=== PATIENT | male | born 1995 | race Caucasian/White ===

== ENCOUNTER 2019-09-25 17:09 | Emergency (ER) | payer OTHER, SELFPAY ==
[2019-09-25 17:11] VITALS: BP 149/115; PULSE 121; RESP 18; TEMP 36.7; O2SAT 99; BMI 19.0
[2019-09-25 17:14] VITALS: BP 105/81; PULSE 76; RESP 16; TEMP 36.6; O2SAT 98
--- NOTE | 2019-09-25 17:40 | EKG12_ITS ---
Test Reason : CP Blood Pressure : / mmHG Vent. Rate : 093 BPM Atrial Rate : 093 BPM P-R Int : 120 ms QRS Dur : 090 ms QT Int : 338 ms P-R-T Axes : 073 088 042 degrees QTc Int : 420 ms Normal sinus rhythm with sinus arrhythmia Normal ECG Confirmed by TREVON BEACH, MARC ([id number]), book or script editor FABIOLA PACHECO ([id number]) on 09/28/2019 10:35:01 AM Referred By: JOANNA/CHRIS Confirmed By:MARC LESTER MD
--- NOTE | 2019-09-25 17:41 | ED.VIS.GEN ---
History of Present Illness Chief Complaint: Chest Pain Informant: Patient Narrative: For the past 2 to 3 days patient had a pain left shoulder blade left anterior chest is worse with taking a deep breath. It is intermittent in nature. At times he gets tingling down his arm. States it is particularly worse this morning when he woke up. He thought perhaps it was something muscular but given his family history of spontaneous pneumothorax he figured he should get it evaluated. He does have a history of vaping. Past Medical History - Allergies and Home Meds Allergies/Adverse Reactions: Allergies No Known Allergies Allergy (Verified 09/25/19 17:15) Review of Systems General: Denies: Chills, Fever, Sweats Eyes: Denies: Visual changes - bilaterally, Diplopia ENT: Denies: Rhinorrhea, Sore throat Cardiovascular: Reports: Chest pain. Denies: Palpitations Respiratory: Denies: Dyspnea, Cough, Dyspnea on exertion Gastrointestinal: Denies: Abdominal pain, Nausea, Vomiting, Diarrhea, Melena, Hematochezia Genitourinary: Denies: Dysuria, Hematuria, Frequency Musculoskeletal: Reports: Back pain. Denies: Extremity Pain Skin: Denies: Rash, Wounds Neurological: Reports: Parasthesia. Denies: Headache, Weakness, Numbness Physical Exam Vital Signs/Narrative: Vital Signs Temp Pulse Resp BP Pulse Ox 09/25/19 17:11 98.0 F 121 H 18 149/115 H 99 Inital Vital Signs reviewed: Yes General: Well nourished, Well developed, No Acute Distress Head: Normocephalic, Atraumatic Eyes: Perrl, EOMI ENT: Moist mucous membranes, No rhinorrhea Neck: Supple, Nontender Cardiovascular: Regular rate, Regular rhythm, No murmurs Respiratory: No distress, CTA bilaterally, Chest nontender Abdomen: Soft, Nontender, Nondistended, Normal bowel sounds Back: Nontender, Normal Inspection Extremities: Nontender, No edema Skin: Normal color, No rash Neurological: Alert, Oriented x3, Cranial nerves II-XII grossly intact, Normal Strength, Normal Sensation Psychological: Normal affect, Normal Mood Diagnostic/Tx/Re-eval - EKG Initial EKG Interpretation: Sinus Rhythm - EKG is a sinus rhythm at a rate of [address] segments. - Medical Decision Making Chest x-ray shows no pneumothorax or effusion or infiltrate. His symptoms are intermittent. Therefore I do not think that this is pulmonary embolism. I do not think he has any evidence of ACS or dissection. I think this is most likely musculoskeletal if not improving follow-up with primary care return if worsening or concerns ED Disposition - Plan for ED Patient: Disposition: Home or Assisted Living Diagnosis: Chest wall pain Instructions: ED Chest Pain NonCardiac Referrals: Alonzo Arevalo MD [Primary Care Provider] - 1 Week if not improving
--- NOTE | 2019-09-25 17:48 | NURSING ---
NO OLD EKGS
--- NOTE | 2019-09-25 17:58 | RAD_ITS ---
STUDY: X-RAY CHEST REASON FOR EXAM: Male, 24 years old. Chest pain, history of vaping TECHNIQUE: PA and lateral views of the chest. COMPARISON: None. FINDINGS: EKG leads overlie the chest The lungs are clear and expanded. There is no demonstrated pleural abnormality. Normal size heart. Normal mediastinum and carlos. Normal visualized pulmonary arteries. Normal visualized aortic arch and descending thoracic aorta. Normal visualized thoracic spine. Normal visualized ribs, clavicles, and shoulders. There is no demonstrated abnormality of the visualized soft tissue structures of the upper abdomen. RAD/Chest PA and Lateral IMPRESSION: No acute pulmonary process Electronically Signed: Pablo Jasmine MD at 18:13 EDT , Service support ,
[2019-09-25 18:14] VITALS: BP 103/70; PULSE 70; RESP 16; TEMP 36.6; O2SAT 97
== END 2019-09-25 18:24 | disposition home or self-care (01) ==
PROVIDERS: Emergency Provider Emergency Medicine; PCP Family Medicine
DX: R07.89 Other chest pain (principal)
CPT/HCPCS: 71046; 93005; 99284; A4216

== ENCOUNTER 2021-05-21 15:20 | Outpatient (CLI) | payer OTHER, SELFPAY ==
--- NOTE | 2021-05-21 15:25 | RAD_ITS ---
EXAM: XR RIGHT ANKLE, 2 VIEWS CLINICAL INDICATION: R ANKLE PAIN, states twisted ankle last night, pain in dorsal aspect of foot as well as entirety of ankle TECHNIQUE: Frontal and lateral views of the right ankle. This report was created using [employer] report generation technology. COMPARISON: None. FINDINGS: BONES/JOINTS: Unremarkable. No acute fracture. No subluxation. Normal alignment. Preservation of the joint space. No sclerotic or destructive changes observed. SOFT TISSUES: Unremarkable. No soft tissue swelling or gas. No radiopaque foreign body. RAD/Ankle 2 Views IMPRESSION: Negative right ankle x-rays. Electronically Signed: Nathaniel Dickey MD at 15:55 EST ,
== END 2021-05-21 23:59 | disposition short-term general hospital (02) ==
LOC: RAD 15:24
PROVIDERS: PCP Family Medicine; Referring Provider Family Medicine; Visit Provider Family Medicine
DX: M25.571 Pain in right ankle and joints of right foot (principal)
CPT/HCPCS: 73600

== ENCOUNTER → 2025-03-31 | Outpatient (CLI) | payer OTHER, SELFPAY ==
--- NOTE | 2025-03-31 08:54 | US_ITS ---
PROCEDURE: ABDOMEN COMPLETE 03/31/2025 REASON FOR EXAM: RUQ PAIN/NAUSEA/ALCOHOL USE TECHNIQUE: Procedure Code: USABDC Modality: US Procedure: ABDOMEN COMPLETE COMPARISON: None. FINDINGS: LIVER ECHOGENICITY: Normal SIZE: Normal measuring 15.6 cm in length. CONTOUR: Smooth. MASS: None. PORTAL VEIN: Normal direction hepatopetal portal venous flow. GALLBLADDER SIZE: Normal. STONES: None. SLUDGE: None. WALL THICKNESS: Normal measuring 1.8 mm. PERICHOLECYSTIC FLUID: None. SONOGRAPHIC CARRILLO'S SIGN: Negative. BILE DUCTS: Normal with the CBD measuring 1.9 mm in diameter. PANCREAS: Unremarkable as visualized. The distal pancreas is obscured by overlying bowel gas. SPLEEN: Homogeneous spleen measuring 10.9cm in length. RIGHT KIDNEY: Normal size and echogenicity with a length of 11.0 cm. No hydronephrosis, nephrolithiasis, cyst or mass seen. LEFT KIDNEY: Normal size and echogenicity with a length of 11.2 cm. No hydronephrosis, nephrolithiasis, cyst or mass seen. AORTA: No aneurysm. Maximum diameter of 1.6 cm. IVC: Unremarkable. ASCITES/EFFUSIONS: None. OTHER: None. US/Abdomen Complete IMPRESSION: UNREMARKABLE ABDOMINAL ULTRASOUND. Reading Location: [id number]
--- OUTSIDE RECORDS SUMMARY | 2025-03-31 08:54 | XMS RPT_ITS | CCD ---
Author Organization [facility] Inform ion Partnership [facility] Care Team Providers Care Crusher Tender Name Role Phone Unavailable Primary Care Provider UnavailStephen Barrera MD Primary Care Provider ARTIE BARFIELD Attending Unavailable STEPHEN CORDERO Primary Care Unavailable Medications Current Medications Medication Drug Class(es) Dates Sig (Normalized) Sig (Original) finasteride 1 mg oral tablet (1 source) 5-alpha Reductase Inhibitor Start: 03-02-2025 take 1 tablet by mouth once daily finasteride (Propecia) 1 MG tablet Indications: Hair loss Take 1 tablet (1 mg) by mouth daily. Do not crush, chew, or split. 30 tablet 03/02/2025 Active Problems Active Problems Problem Classification Problem Date Documented Da te Episodic/Chronic Abdominal pain (4 sources) Right upper quadrant pain; Translations: [Right upper quadrant pain] Onset: 02-26-2025 02-26-2025 Episodic Administrative/social admission (10 sources) Patient encounter status; Translations: [Persons encountering health services in other specified circumstances] Onset: 02-26-2025 02-26-2025 Episodic Alcohol-related disorders (8 sources) Current drinker; Translations: [Alcohol use] Onset: 02-26-2025 02-26-2025 Chronic Disorders of lipid metabolism (8 sources) Mixed hyperlipidemia; Translations: [Mixed hyperlipidemia] Onset: 02-27-2025 02-27-2025 Chronic Malaise and fatigue (4 sources) Fatigue; Translations: [Other fatigue] Onset: 02-26-2025 02-26-2025 Episodic Nausea and vomiting (4 sources) Nausea; Translations: [Nausea] Onset: 02-26-2025 02-26-2025 Episodic Other nutritional; endocrine; and metabolic disorders (2 sources) Weight increased; Translations: [Abnormal weight gain] 02-26-2025 Episodic Other nutritional; endocrine; and metabolic disorders (2 sources) Abnormal weight gain; Translations: [Abnormal weight gain] Onset: 02-26-2025 Episodic Other screening for suspected conditions (not mental disorders or infectious disease) (6 sources) Encounter for screening for diabetes mellitus; Translations: [Encounter for screening for lipoid disorders] Onset: 02-26-2025 Episodic Other skin disorders (9 sources) Loss of hair; Translations: [Nonscarring hair loss, unspecified] Onset: 02-26-2025 02-26-2025 Episodic Other skin disorders (2 sources) Nonscarring hair loss, unspecified; Translations: [Nonscarring hair loss, unspecified] Onset: 02-26-2025 Episodic Residual codes; unclassified (2 sources) Influenza vaccination declined; Translations: [Immunization not carried out because of patient refusal] 02-26-2025 Episodic Residual codes; unclassified (2 sources) Immunization not carried out because of patient refusal; Translations: [Immunization not carried out because of patient refusal] Onset: 02-26-2025 Episodic Unclassified (1 source) Alcohol use, unspecified, uncomplicated; Translations: [Alcohol use, unspecified, uncomplicated] Onset: 02-26-2025 Past or Other Problems Problem Classification Problem Date Documented Date Episodic/Chronic Immunizations and screening for infectious disease (7 sources) At risk of sexually transmitted infection ; Translations: [Contact with and (suspected) exposure to infections with a predominantly sexual mode of transmission] Onset: 06-17-2016 Resolved: 02-26-2025 02-06-2022 Episodic Unclassified (1 source) Alcohol use, unspecified, uncomplicated; Translations: [Alcohol use, unspecified, uncomplicated] Onset: 02-26-2025 Results Test Name Value Interpretation Reference Range Facil ity 29on 03-02-2025 29 Addended by: ARTIE BARFIELD on: 03/02/2025 09:22 AM Modules accepted: [facility] 36on 03-02-2025 36 Called and reviewed medication options and potential side effects. Kulwant would still like to proceed with the medication and prescription sent for finasteride 1 mg by mouth daily. Will send a [employer] message with an update in 3 weeks or so with how he is doing on the medication and let me know if he would like to continue taking it. Discussed possible referral to dermatology if symptoms persist or worsen for further evaluation/workup. Normal [facility] 36on 02-28-2025 36 Attempted to call Kulwant to review options with no answer. Will attempt to reach out to Kulwant again on Wednesday this week. Normal [facility] Office Visiton 02-26-2025 Follow-up visit [id number] Kulwant Steen 1995 M Date Provider Department Center 02/26/2025 [id number] BARFIELD [facility] Family History Problem Relation Age of Onset Skin cancer Maternal Grandfather Family Status - Relation Status Age at Mother Alive Father Alive Maternal Grandfather Level of Service:46150 [place] INITIAL PREVENTIVE MEDICINE NEW PT AGE 18-39YRS Reason for Visit and Comments: Establish Care [42] Alopecia [5498122643] Abdominal Pain [038926] - Pain that comes up to his shoulder then bad gas feeling after Fatigue [46] Blood Work [961513] Health Maintenance [872] - HIV Screening- declines Varicella Vaccines(2 of 2 - 2-dose childhood series)- decline IPV Vaccines- declines Depression Screening- declines Hepatitis C Screening- declines DTaP/Tdap/Td Vaccines- decline Hepatitis B Vaccines- decline Influenza Vaccine(1)- declines COVID-19 Vaccine(3)-declines Other [0] - Face red, hot, sweating [facility] Progress Noteon 02-26-2025 Progress Note [facility] [address] [facility] [id number] Kulwant Steen is a 30 y.o. male who presents for Establish Care, Alopecia, Abdominal Pain (Pain that comes up to his shoulder then bad gas feeling after ), Fatigue, Blood Work, Health Maintenance (HIV Screening- declines/Varicella Vaccines(2 of 2 - 2-dose childhood series)- decline/IPV Vaccines- declines/Depression Screening- declines/Hepatitis C Screening- declines/DTaP/Tdap/Td Vaccines- decline/Hepatitis B Vaccines- decline/Influenza Vaccine(1)- declines/COVID-19 Vaccine(3)-declines/) , and Other (Face red, hot, sweating ) Assessment/Plan 1. Well adult exam (Z00.00) Comprehensive physical examination performed. Extensive blood work ordered including comprehensive metabolic panel for diabetes screening, liver enzymes, kidney function, and electrolytes; complete blood count to assess for infection, anemia, and platelet abnormalities; lipid panel for cholesterol screening; full thyroid panel including TSH, free T3, and free T4; amylase and lipase to evaluate pancreas function; and testosterone level. Follow-up in one year for physical examination, with additional follow-up pending blood work results. 2. Encounter to establish care (Z76.89) 3. Hair loss (L65.9) - chronic, worsening Full thyroid panel ordered to evaluate potential thyroid contribution to hair loss. 4. Other fatigue (R53.83) - chronic, stable Comprehensive blood work ordered including blood glucose, complete blood count, and metabolic panel to evaluate potential contributing factors. 5. Weight gain (R63.5) - chronic, worsening 30-pound weight gain over past year from 140 to 168 pounds without dietary changes. Thyroid panel ordered to assess for thyroid contribution. Counseled on empty calories from alcohol consumption as potential contributing factor. 6. Right upper quadrant abdominal pain (R10.11) - chronic, worsening Abdominal ultrasound ordered to evaluate for gallstones and assess liver size. Blood work ordered including liver enzymes, amylase, and lipase to evaluate liver, gallbladder, and pancreas. Patient advised to avoid heavy meals 4-6 hours prior to ultrasound. Patient prefers the [facility] location for the ultrasound; the order will be faxed there and the scheduling number will be provided at checkout. 7. Nausea (R11.0) - episodic Occurs randomly, sometimes with abdominal pain and sometimes independently. Morning dry heaving episodes noted. 8. Alcohol use (F10.90) - chronic, stable Regular alcohol consumption since age 22, currently drinking less than six beers on weekends and trying to limit to under four beers if drinking during weekdays. Previously drank more and has been slowly reducing intake. No withdrawal symptoms on non-drinking days. Liver enzymes ordered. Counseled on long-term risks including diabetes, elevated triglycerides, cholesterol abnormalities, and liver disease. Encouraged to continue gradual reduction in alcohol consumption. 9. Diabetes mellitus screening (Z13.1) Blood glucose included in comprehensive metabolic panel. Patient fasting since 9pm last night. 10. Screening for lipoid disorders (Z13.220) Lipid panel ordered. 11. Screening for deficiency anemia (Z13.0) Complete blood count ordered. 12. Influenza vaccine refused (Z28.21) Flu vaccine declined today. Kulwant was seen today for establish care, alopecia, abdominal pain, fatigue, blood work, health maintenance and other. Diagnoses and all orders for this visit: Well adult exam (Primary) Encounter to establish care Hair loss - CBC; Future - Comprehensive metabolic panel; Future - TSH; Future - T3, free; Future - T4, free; Future - Testosterone; Future - CBC - Comprehensive metabolic panel - TSH - T3, free - T4, free - Testosterone Other fatigue - CBC; Future - Comprehensive metabolic panel; Future - TSH; Future - T3, free; Future - T4, free; Future - Testosterone; Future - CBC - Comprehensive metabolic panel - TSH - T3, free - T4, free - Testosterone Weight gain - CBC; Future - Comprehensive metabolic panel; Future - TSH; Future - T3, free; Future - T4, free; Future - Testosterone; Future - CBC - Comprehensive metabolic panel - TSH - T3, free - T4, free - Testosterone Right upper quadrant abdominal pain - CBC; Future - Comprehensive metabolic panel; Future - US abdomen complete; Future - Amylase; Future - Lipase; Future - CBC - Comprehensive metabolic panel - Amylase - Lipase Nausea - CBC; Future - Comprehensive metabolic panel; Future - US abdomen complete; Future - Amylase; Future - Lipase; Future - CBC - Comprehensive metabolic panel - Amylase - Lipase Alcohol use - CBC; Future - Comprehensive metabolic panel; Future - US abdomen complete; Future - CBC - Comprehensive metabolic panel (more content not included)... [facility] 06-13-2024 36 Stephen Cordero MD37 minutes ago (3:11 PM) Cannot currently do that, we are needing more help in the office then we will start taking new patients. Left a message to return call. [facility] 36 Cannot currently do that, we are needing more help in the office then we will start taking new patients. [facility] 06-07-2024 36 Name of Caller: Kulwant Contact Reason for Appointment: Patient asking if Dr. Cordero would take him on as a patient again. Not showing when patient was last seen. Did not want to schedule a new to provider not knowing if it has been more than 3 years. Please advise. Office Name: [facility] Medication Refills need, if any: n/a Medication Name: n/a Normal [facility] Ankle 2 Viewson 05-21-2021 Ankle 2 Views [facility] [address] [place] [address] Ankle 2 Views MR#: [id number] Acct: [id number] Name: KULWANT STEEN Rep #: [id number] : 1995 M 26 From: Nathaniel Garcia PCP: Dr. Stephen Cordero MD Status: REG CLI Study: Ankle 2 Views Date of Exam: 05/21/21 Exam# [id number] Ordering Dr: Stephen Cordero MD EXAM: XR RIGHT ANKLE, 2 VIEWS CLINICAL INDICATION: R ANKLE PAIN, states twisted ankle last night, pain in dorsal aspect of foot as well as entirety of ankle TECHNIQUE: Frontal and lateral views of the right ankle. This report was created using [employer] report generation technology. COMPARISON: None. FINDINGS: BONES/JOINTS: Unremarkable. No acute fracture. No subluxation. Normal alignment. Preservation of the joint space. No sclerotic or destructive changes observed. SOFT TISSUES: Unremarkable. No soft tissue swelling or gas. No radiopaque foreign body. RAD/Ankle 2 Views IMPRESSION: Negative right ankle x-rays. Electronically Signed: Nathaniel Dickey MD at 15:55 EST Reading Location ID and State: [facility] / [place] , Service support , CC: Dr. Stephen Cordero MD Event Marketing Assistant: Signed Normal [facility] Vital Signs Date Time Vital Sign Value Performing Clinician Faci lity 02-26-2025 15:06-0500 Body height 182.9 cm Artie Thacker SENIOR INFORMATION SECURITY ARCHITECT Work Phone: [facility] 02-26-2025 15:06-0500 Body mass index (BMI) [Ratio] 22.81 kg/m2 Artie Moise CNP Work Phone: [facility] 02-26-2025 15:06-0500 Body weight 76.3 kg Artie Thacker SENIOR INFORMATION SECURITY ARCHITECT Work Phone: [facility] 02-26-2025 15:06-0500 Diastolic blood pressure 86 mm[Hg] Artie Barfield DOG WALKER - METER SETTER Work Phone: [email or web address] 02-26-2025 15:06-0500 Heart rate 93 /min Artie Barfield DOG WALKER - C SENIOR INFORMATION SECURITY ARCHITECT Work Phone: [email or web address] 02-26-2025 15:06-0500 SaO2% (BldA) [Mass fraction] 98 % Artie Barfield DOG WALKER - METER SETTER Work Phone: [email or web address] 02-26-2025 15:06-0500 Systolic blood pressure 118 mm[Hg] Artie Barfield DOG WALKER - METER SETTER Work Phone: [email or web address] Encounters Encounter Date Encounter Type Care Provider Facility Start: 02-27-2025 End: 02-27-2025 Follow-up encounter Artie Barfield DOG WALKER - METER SETTER Work Phone: [facility] Comment on above: CBC, Comprehensive m etabolic panel, Lipid panel, Additional followed-up results: 6 Start: 02-26-2025 End: 02-26-2025 Initial preventive medicine new pt age 18-39yrs Artie Barfield DOG WALKER - METER SETTER Work Phone: [facility] Comment on above: Well adult exam (Kami mirian Dx); Encounter to establish care; Hair loss; Other fatigue; Weight gain; Right upper quadrant abdominal pain; Nausea; Alcohol use; Diabetes mellitus screening; Screening for lipoid disorders; Screening for deficiency anemia; Influenza vaccine refused Start: 02-26-2025 End: 02-26-2025 Patient encounter status Artie Barfield DOG WALKER - METER SETTER [facility] Start: 02-26-2025 End: 02-26-2025 ambulatory ARTIE CAROLYNE [facility] Start: 02-26-2025 End: 02-26-2025 Encounter for general adult medical examination without abnormal findings ARTIE CAROLYNE [facility] Start: 06-07-2024 End: 06-30-2024 Telephone encounter Stephen Cordero MD Work Phone: [facility] Comment on above: Appointment Procedures Date Procedure Procedure Detail Performing Clinician Start: 02-26-2025 Adult depression screening assessment Artie Barfield DOG WALKER - METER SETTER Work Phone: Plan of Treatment Date Care Activity Detail Author Start: 02-21-2071 RSV Immunization for Adults (1 - 1-dose 75+ series) RSV Immunization for Adults (1 - 1-dose 75+ series) [facility] Start: 02-21-2046 Zoster Vaccines (1 of 2) Zoster Vacc delano (1 of 2) [facility] Start: 03-04-2026 End: 03-04-2026 Patient encounter procedure 03/04/2026 3:20 PM EST Office Visit [facility] [address] [place] [address] Artie Barfield, DOG WALKER - METER SETTER [address] [place] [address] [facility] Start: 02-26-2026 COVID-19 Vaccine ( season) COVID-19 Vaccine ( season) [facility] Comment on above: Postponed from 12/25 (Patient Refused) Start: 02-26-2026 Depression Screening Depression Scre ening [facility] Start: 02-26-2026 DTaP/Tdap/Td Vaccine s (3 - Tdap) DTaP/Tdap/Td Vaccines (3 - Tdap) [facility] Comment on above: Postponed from 02/21 (Patient Refused) Start: 02-26-2026 Hepatitis B Vaccines (1 of 3 - 19+ 3-dose series) Hepatitis B Vaccines (1 of 3 - 19+ 3-dose series) [facility] Comment on above: Postponed from 02/21 (Patient Refused) Start: 02-26-2026 Hepatitis C screening Hepatitis C Sc reening [facility] Comment on above: Postponed from 02/21 (Patient Refused) Start: 02-26-2026 HIV screening HIV Screening [facility] Comment on above: Postponed from 02/21 (Patient Refused) Start: 10-23-2025 Influenza vaccination Influenza Vacc ine (#1) [facility] Comment on above: Postponed from 12/25 (Patient Refused) Start: 08-27-2025 End: 02-27-2026 Lipid 1995 panel - Serum or Plasma Lipid panel Lab Routine Mixed hyperlipidemia Expected: 08/27/2025 (Approximate), Expires: 02/27/2026 [facility] [employer] Work Phone: Comment on above: Expected: 08/27/2025 (Approximate), Expires: 02/27/2026 Start: 08-22-2025 End: 08-22-2025 Clinical Support 08/22/2025 8:00 AM EDT Clinical Support [address] [address] [facility] Start: 02-27-2025 End: 02-27-2026 Comprehensive metabolic 1997 panel - Serum or Plasma Comprehensive metabolic panel Lab Routine Mixed hyperlipidemia Expected: 02/27/2025 (Approximate), Expires: 02/27/2026 [facility] Comment on above: Expected: 02/27/2025 (Approximate), Expires: 02/27/2026 Start: 02-26-2025 End: 02-26-2026 Amylase [Enzymatic activity/volume] in Serum or Plasma Amylase Lab Routine Right upper quadrant abdominal pain Nausea Expected: 02/26/2025 (Approximate), Expires: 02/26/2026 [facility] Comment on above: Expected: 02/26/2025 (Approximate), Expires: 02/26/2026 Start: 02-26-2025 End: 02-26-2026 CBC panel - Blood by Automated count CBC Lab Routine Hair loss Other fatigue Weight gain Right upper quadrant abdominal pain Nausea Alcohol use Screening for deficiency anemia Expected: 02/26/2025 (Approximate), Expires: 02/26/2026 [facility] Work Phone: Comment on above: Expected: 02/26/2025 (Approximate), Expires: 02/26/2026 Start: 02-26-2025 End: 02-26-2026 Comprehensive metabolic 1998 panel - Serum or Plasma Comprehensive metabolic panel Lab Routine Hair loss Other fatigue Weight gain Right upper quadrant abdominal pain Nausea Alcohol use Diabetes mellitus screening Expected: 02/26/2025 (Approximate), Expires: 02/26/2026 [email or web address] Comment on above: Expected: 02/26/2025 (Approximate), Expires: 02/26/2026 Start: 02-26-2025 End: 02-26-2026 Lipase [Enzymatic activity/volume] in Serum or Plasma Lipase Lab Routine Right upper quadrant abdominal pain Nausea Expected: 02/26/2025 (Approximate), Expires: 02/26/2026 [email or web address] Comment on above: Expected: 02/26/2025 (Approximate), Expires: 02/26/2026 Start: 02-26-2025 End: 02-26-2026 Lipid 1995 panel - Serum or Plasma Lipid panel Lab Routine Screening for lipoid disorders Expected: 02/26/2025 (Approximate), Expires: 02/26/2026 [email or web address] Comment on above: Expected: 02/26/2025 (Approximate), Expires: 02/26/2026 Start: 02-26-2025 End: 02-26-2026 Testosterone [Mass/volume] in Serum or Plasma Testosterone Lab Routine Hair loss Other fatigue Weight gain Expected: 02/26/2025 (Approximate), Expires: 02/26/2026 [email or web address] Comment on above: Expected: 02/26/2025 (Approximate), Expires: 02/26/2026 Start: 02-26-2025 End: 02-26-2026 Thyrotropin [Units/volume] in Serum or Plasma TSH Lab Routine Hair loss Other fatigue Weight gain Expected: 02/26/2025 (Approximate), Expires: 02/26/2026 [email or web address] Comment on above: Expected: 02/26/2025 (Approximate), Expires: 02/26/2026 Start: 02-26-2025 End: 02-26-2026 Thyroxine (T4) free [Mass/volume] in Serum or Plasma T4, free Lab Routine Hair loss Other fatigue Weight gain Expected: 02/26/2025 (Approximate), Expires: 02/26/2026 [email or web address] Comment on above: Expected: 02/26/2025 (Approximate), Expires: 02/26/2026 Start: 02-26-2025 End: 02-26-2026 Triiodothyronine (T3) Free [Mass/volume] in Serum or Plasma T3, free Lab Routine Hair loss Other fatigue Weight gain Expected: 02/26/2025 (Approximate), Expires: 02/26/2026 [email or web address] Comment on above: Expected: 02/26/2025 (Approximate), Expires: 02/26/2026 Start: 02-26-2025 End: 02-26-2026 US Abdomen US abdomen complete Imaging Routine Right upper quadrant abdominal pain Nausea Alcohol use Expected: 02/26/2025, Expires: 02/26/2026 [email or web address] Comment on above: Expected: 02/26/2025 , Expires: 02/26/2026 Immunizations Immunization Date Immunization Notes Care Provider Rajat reyes 02-11-2018 influenza, injectabl e, quadrivalent, contains preservative Stephen Cordero MD Work Phone: [email or web address] Work Phone: 02-11-2018 influenza virus vaccine, unspecified formulation Artie Barfield DOG WALKER - METER SETTER Work Phone: [facility] 02-15-2014 influenza, seasonal, injectable Artie Barfield DOG WALKER - METER SETTER Work Phone: [facility] 10-14-2001 diphtheria, tetanus toxoids and acellular pertussis vaccine, unspecified formulation Artie Barfield DOG WALKER - METER SETTER Work Phone: [facility] 10-14-2001 poliovirus vaccine, inactivated Artie Barfield DOG WALKER - METER SETTER Work Phone: [facility] 12-07-2000 measles, mumps and rubella virus vaccine Artie Barfield DOG WALKER - METER SETTER Work Phone: [facility] 03-07-1998 diphtheria, tetanus toxoids and acellular pertussis vaccine, unspecified formulation Artie Barfield DOG WALKER - METER SETTER Work Phone: [facility] 06-21-1997 measles, mumps and rubella virus vaccine Artie Barfield DOG WALKER - METER SETTER Work Phone: [facility] 06-21-1997 varicella virus vaccine Dewayne Barfield DOG WALKER - METER SETTER Work Phone: [facility] Payers Date Payer Category Payer Commercial Managed C are - HMO [employer] [id number] 2024 Unknown [id number] Social History Date Type Detail Facility Start: 02-26-2025 Tobacco smoking status GAIS Ex-smoke r [facility] End: 04-26-2020 History of tobacco use Current smoker [facility] Start: 02-11-2018 End: 02-26-2025 Alcoholic beverage intake Current drinker of alcohol (finding) [facility] Start: 1995 Sex assigned at Not on file [facility] Start: 11-24-2021 Sex Male (finding) [facility] Start: 02-26-2025 Gender identity Not on file [facility] End: 04-26-2020 History of tobacco use Cigarette Smoker [facility] Start: 02-26-2025 Tobacco use and exposure Smokeless t obacco non-user [facility] Start: 02-26-2025 Alcoholic beverage intake [facility] Start: 02-26-2025 Alcohol Comment social- patien t states drinks more then he should trys to no drink more then 6 a night [facility] Functional Status Date Assessment Result Facility 02-26-2025 Patient Health Questionnaire 2 item (PHQ- 2) [Reported] [facility] 02-26-2025 PHQ-9 quick depression assessment panel [ Reported.PHQ] [facility] Clinical Notes 06-07-2024 to 03-02-2025 Addendum Note - ARSH García CNP - 03/02/2025 9:22 AM ESTAddendum Note - ARSH García CNP - 03/02/2025 9:22 AM ARSH Antoine CNP - 02/26/2025 3:00 PM EST Note Date & Type Note [facility] 03-02-2025 Note Addended by: ARTIE BARFIELD on: 03/02/2025 09:22 AM Modules accepted: Orders [facility] 03-02-2025 Miscellaneous Notes Addended by: ARTIE BARFIELD on: 03/02/2025 09:22 AM Modules accepted: Orders Called and reviewed medication options and potential side effects. uKlwant would still like to proceed with the medication and prescription sent for finasteride 1 mg by mouth daily. Will send a [employer] message with an update in 3 weeks or so with how he is doing on the medication and let me know if he would like to continue taking it. Discussed possible referral to dermatology if symptoms persist or worsen for further evaluation/workup. Attempted to call Kulwant to review options with no answer. Will attempt to reach out to Kulwant again on Wednesday this week. documented in this encounter [facility] 03-02-2025 Telephone encounter Note Form atting of this note might be different from the original. Called and reviewed medication options and potential side effects. Kulwant would still like to proceed with the medication and prescription sent for finasteride 1 mg by mouth daily. Will send a MyChart message with an update in 3 weeks or so with how he is doing on the medication and let me know if he would like to continue taking it. Discussed possible referral to dermatology if symptoms persist or worsen for further evaluation/workup. [facility] 02-28-2025 Telephone encounter Note Form atting of this note might be different from the original. Attempted to call Kulwant to review options with no answer. Will attempt to reach out to Kulwant again on Wednesday this week. [facility] 02-28-2025 Miscellaneous Notes Formattin g of this note might be different from the original. Attempted to call Kulwant to review options with no answer. Will attempt to reach out to Kulwant again on Wednesday this week. documented in this encounter [facility] 02-26-2025 History of Presen t illness Narrative Images from the original note were not included. [address] [id number] Kulwant Steen is a 30 y.o. male who presents for [facility], Alopecia, Abdominal Pain (Pain that comes up to his shoulder then bad gas feeling after ), Fatigue, Blood Work, Health Maintenance (HIV Screening- declines/Varicella Vaccines(2 of 2 - 2-dose childhood series)- decline/IPV Vaccines- declines/Depression Screening- declines/Hepatitis C Screening- declines/DTaP/Tdap/Td Vaccines- decline/Hepatitis B Vaccines- decline/Influenza Vaccine(1)- declines/COVID-19 Vaccine(3)-declines/), and Other (Face red, hot, sweating ) Assessment/Plan 1. Well adult exam (Z00.00) Comprehensive physical examination performed. Extensive blood work ordered including comprehensive metabolic panel for diabetes screening, liver enzymes, kidney function, and electrolytes; complete blood count to assess for infection, anemia, and platelet abnormalities; lipid panel for cholesterol screening; full thyroid panel including TSH, free T3, and free T4; amylase and lipase to evaluate pancreas function; and testosterone level. Follow-up in one year for physical examination, with additional follow-up pending blood work results. 2. Encounter to [facility] (Z76.89) 3. Hair loss (L65.9) - chronic, worsening Full thyroid panel ordered to evaluate potential thyroid contribution to hair loss. 4. Other fatigue (R53.83) - chronic, stable Comprehensive blood work ordered including blood glucose, complete blood count, and metabolic panel to evaluate potential contributing factors. 5. Weight gain (R63.5) - chronic, worsening 30-pound weight gain over past year from 140 to 168 pounds without dietary changes. Thyroid panel ordered to assess for thyroid contribution. Counseled on empty calories from alcohol consumption as potential contributing factor. 6. Right upper quadrant abdominal pain (R10.11) - chronic, worsening Abdominal ultrasound ordered to evaluate for gallstones and assess liver size. Blood work ordered including liver enzymes, amylase, and lipase to evaluate liver, gallbladder, and pancreas. Patient advised to avoid heavy meals 4-6 hours prior to ultrasound. Patient prefers the [place] location for the ultrasound; the order will be faxed there and the scheduling number will be provided at checkout. 7. Nausea (R11.0) - episodic Occurs randomly, sometimes with abdominal pain and sometimes independently. Morning dry heaving episodes noted. 8. Alcohol use (F10.90) - chronic, stable Regular alcohol consumption since age 22, currently drinking less than six beers on weekends and trying to limit to under four beers if drinking during weekdays. Previously drank more and has been slowly reducing intake. No withdrawal symptoms on non-drinking days. Liver enzymes ordered. Counseled on long-term risks including diabetes, elevated triglycerides, cholesterol abnormalities, and liver disease. Encouraged to continue gradual reduction in alcohol consumption. 9. Diabetes mellitus screening (Z13.1) Blood glucose included in comprehensive metabolic panel. Patient fasting since 9pm last night. 10. Screening for lipoid disorders (Z13.220) Lipid panel ordered. 11. Screening for deficiency anemia (Z13.0) Complete blood count ordered. 12. Influenza vaccine refused (Z28.21) Flu vaccine declined today. Kulwant was seen today for establish care, alopecia, abdominal pain, fatigue, blood work, health maintenance and other. Diagnoses and all orders for this visit: Well adult exam (Primary) Encounter to establish care Hair loss - CBC; Future - Comprehensive metabolic panel; Future - TSH; Future - T3, free; Future - T4, free; Future - Testosterone; Future - CBC - Comprehensive metabolic panel - TSH - T3, free - T4, free - Testosterone Other fatigue - CBC; Future - Comprehensive metabolic panel; Future - TSH; Future - T3, free; Future - T4, free; Future - Testosterone; Future - CBC - Comprehensive metabolic panel - TSH - T3, free - T4, free - Testosterone Weight gain - CBC; Future - Comprehensive metabolic panel; Future - TSH; Future - T3, free; Future - T4, free; Future - Testosterone; Future - CBC - Comprehensive metabolic panel - TSH - T3, free - T4, free - Testosterone Right upper quadrant abdominal pain - CBC; Future - Comprehensive metabolic panel; Future - US abdomen complete; Future - Amylase; Future - Lipase; Future - CBC - Comprehensive metabolic panel - Amylase - Lipase Nausea - CBC; Future - Comprehensive metabolic panel; Future - US abdomen complete; Future - Amylase; Future - Lipase; Future - CBC - Comprehensive metabolic panel - Amylase - Lipase Alcohol use - CBC; Future - Comprehensive metabolic panel; Future - US abdomen complete; Future - CBC - Comprehensive metabolic panel Diabetes mellitus screening - Comprehensive metabolic panel; Future - Comprehensive metabolic panel Screening for lipoid disorders - Lipid panel; Future - Lipid panel Screening for deficiency anemia - CBC; Future - CBC Influenza vaccine refused Follow up in about 1 year (around 02/26/2026) for physical and fasting blood work and sooner if needed pending lab results. Subjective History of Present Illness Kulwant Steen, a 30-year-old male, [facility] with this office and for his annual physical. He previously received care here during childhood and has not been seeing any other primary care doctors in the interim. He reports noticing hair loss that began in his early 20s, around age 23-24, but has progressively worsened. He wakes up with clumps of hair on his pillow, notes his hairline is receding especially on one side, and has hair come out when running his fingers through it. He has been experiencing right upper quadrant abdominal pain for approximately one year that has been progressively worsening. The pain is located in the right upper quadrant and he describes it as feeling like a knot. Yesterday he had a particularly severe episode. He feels bloated and gets really bad gas afterwards. The pain does not always occur with the gas. Sometimes he experiences nausea randomly without stomach pain, and other times the nausea occurs together with the abdominal pain. All day yesterday the pain persisted, and this morning it still felt a little uncomfortable but has since resolved. Right before the pain happens, he gets really bad gas, and while in pain feels filled with gas that will not pass. He has had some morning dry heaving episodes right when he wakes up, occurring randomly regardless of whether he drank alcohol the night before. Regarding alcohol use, he tries to drink less than six beers on the weekends and tries not to drink during the week, though he is not perfect about it. If he does drink during the week, he tries to keep it under four beers to avoid feeling bad the next day. He has been drinking regularly since age 22. He denies any alcohol withdrawal symptoms on days he does not drink and reports he can go four to six days without drinking on backpacking trips without issue. He reports his face gets red randomly and he feels really hot at times. He has experienced significant weight gain over the past year, going from approximately 140 pounds to 168 pounds, despite no change in his diet. He reports low energy and fatigue, getting fatigued really easily and not feeling 100% all the time. After exertion, he feels sluggish and done for the rest of the day. He denies yellowing of skin or eyes, unexplained fevers or chills, chest pain, shortness of breath, irregular heartbeat, swelling in feet or ankles, blood in urine or stool, increased thirst, or increased urination. He reports heat intolerance. He denies feeling depressed or anxious. He has regular bowel movements. He works in an office setting. Socially, he sits at home, plays video games, chats with friends, and drinks beer. Health Maintenance: Vaccinated for COVID-19 x 2 with most recent dose on 09/09/2020- declines additional doses. Declines screening for hepatitis C and HIV. Declines a flu vaccination. Declines a second varicella vaccine-first dose recorded on 06/21/1997. Declines additional doses of IPV-only 1 dose recorded on 10/14/2001. Declines to be vaccinated for hepatitis B. Declines a Tdap vaccination. I obtained verbal consent from the patient and/or patient's guardian to use ambient listening technology during this encounter before the ambient technology was engaged. Review of Systems Constitutional: Positive for fatigue and unexpected weight change. Negative for chills and fever. HENT: Negative for hearing loss and trouble swallowing. Eyes: Negative for pain and visual disturbance. Respiratory: Negative for cough, chest tightness, shortness of breath and wheezing. Cardiovascular: Negative for chest pain, palpitations and leg swelling. Gastrointestinal: Positive for abdominal distention, abdominal pain (RUQ) and nausea. Negative for blood in stool, constipation and diarrhea. Endocrine: Positive for heat intolerance. Negative for cold intolerance, polydipsia, polyphagia and polyuria. Genitourinary: Negative for dysuria and hematuria. Musculoskeletal: Negative for arthralgias and myalgias. Skin: Negative for color change, pallor, rash and wound. Neurological: Negative for dizziness, syncope, weakness and headaches. Hematological: Does not bruise/bleed easily. Psychiatric/Behavioral: Negative for dysphoric mood. The patient is not nervous/anxious. Objective BP 118/86 Pulse 93 Ht 6' (1.829 m) Wt 168 lb 3.2 oz (76.3 kg) SpO2 98% BMI 22.81 kg/m Physical Exam Constitutional: General: Not in acute distress. Appearance: Not ill-appearing or diaphoretic. HENT: Head: Normocephalic and atraumatic. Right Ear: Tympanic membrane, ear canal and external ear normal. There is no impacted cerumen. Left Ear: Tympanic membrane, ear canal and external ear normal. There is no impacted cerumen. Nose: Nose normal. No congestion or rhinorrhea. Mouth/Throat: Mouth: Mucous membranes are moist. Pharynx: Oropharynx is clear. No oropharyngeal exudate or posterior oropharyngeal erythema. Eyes: General: No scleral icterus. Extraocular Movements: Extraocular movements intact. Pupils: Pupils are equal, round, and reactive to light. Neck: Thyroid: No thyroid mass or thyromegaly. Vascular: No carotid bruit. Cardiovascular: Rate and Rhythm: Normal rate and regular rhythm. Pulses: Normal pulses. Heart sounds: Normal heart sounds. No murmur heard. No friction rub. Pulmonary: Effort: Pulmonary effort is normal. Breath sounds: Normal breath sounds. No wheezing, rhonchi or rales. Abdominal: General: Bowel sounds are normal. There is no distension. Palpations: Abdomen is soft. There is no hepatomegaly, splenomegaly or mass. Tenderness: There is no abdominal tenderness. There is no guarding or rebound. Musculoskeletal: General: No deformity. Normal range of motion. Cervical back: Normal range of motion and neck supple. Right lower leg: No edema. Left lower leg: No edema. Lymphadenopathy: Cervical: No cervical adenopathy. Skin: General: Skin is warm and dry. Face is erythematous. Capillary Refill: Capillary refill takes less than 2 seconds. Coloration: Skin is not jaundiced or pale. Findings: No rash. Neurological: Mental Status: Alert and oriented to person, place, and time. Motor: No weakness. Coordination: Coordination normal. Gait: Gait normal. Psychiatric: Mood and Affect: Mood normal. Behavior: Behavior normal. Thought Content: Thought content normal. Judgment: Judgment normal. Results documented in this encounter [facility] 06-13-2024 Telephone encounter Note Form atting of this note is different from the original. Stephen Cordero MD37 minutes ago (3:11 PM) Cannot currently do that, we are needing more help in the office then we will start taking new patients. Left a message to return call. [facility] 06-13-2024 Miscellaneous Notes Formattin g of this note is different from the original. Stephen Cordero MD37 minutes ago (3:11 PM) Cannot currently do that, we are needing more help in the office then we will start taking new patients. Left a message to return call. Cannot currently do that, we are needing more help in the office then we will start taking new patients. Name of Caller: Kulwant Contact Reason for Appointment: Patient asking if Dr. Cordero would take him on as a patient again. Not showing when patient was last seen. Did not want to schedule a new to provider not knowing if it has been more than 3 years. Please advise. Office Name: [facility] Medication Refills need, if any: n/a Medication Name: n/a documented in this encounter [facility] 06-13-2024 Telephone encounter Note Form atting of this note might be different from the original. Cannot currently do that, we are needing more help in the office then we will start taking new patients. [facility] 06-07-2024 Telephone encounter Note Form atting of this note might be different from the original. Name of Caller: Kulwant Contact Reason for Appointment: Patient asking if Dr. Cordero would take him on as a patient again. Not showing when patient was last seen. Did not want to schedule a new to provider not knowing if it has been more than 3 years. Please advise. Office Name: [facility] Medication Refills need, if any: n/a Medication Name: n/a [facility] Evaluation note Diagnosis Well adult exam- Primary Routine general medical examination at a health care facility Encounter to establish care Hair loss Unspecified alopecia Other fatigue Weight gain Other symptoms concerning nutrition, metabolism, and development Right upper quadrant abdominal pain Nausea Nausea alone Alcohol use Other problems related to lifestyle Diabetes mellitus screening Screening for diabetes mellitus Screening for lipoid disorders Screening for deficiency anemia Screening for other and unspecified deficiency anemia Influenza vaccine refused documented [facility]* Diagnosis Mixed hyperlipidemia- Primary documented in this encounter [facility]* Diagnosis Mixed hyperlipidemia- Primary [facility] Diagnosis Mixed hyperlipidemia- Primary Hair loss Unspecified alopecia documented in this encounter [facility] Summary Purpose Family History No Family History Records FoundNo Family History Records Found Advance Directives No Advanced Directives Records FoundNo Advanced Directives Records Found Additional Source Comments (unrecognized sect ion and content) No Status Records FoundNo Status Records Found INFORMATION SOURCE (unrecogn ized section and content) DATE CREATED AUTHOR 07/04/2021 [facility] DATE CREATED AUTHOR AUTHOR'S ORGANIZ ATION 03/02/2025 [facility] Reason for Visit (unrecogniz ed section and content) Reason Onset Date Comments Appointment 06/07/2024 Reason Comments Establish Care Alopecia Abdominal Pain Pain that comes up t o his shoulder then bad gas feeling after Fatigue Blood Work Health Maintenance HIV Screening- decli nesVaricella Vaccines(2 of 2 - 2-dose childhood series)- declineIPV Vaccines- declinesDepression Screening- declinesHepatitis C Screening- declinesDTaP/Tdap/Td Vaccines- declineHepatitis B Vaccines- declineInfluenza Vaccine(1)- declinesCOVID-19 Vaccine(3)-declines Other Face red, hot, sweat ing Care Teams (unrecognized sec tion and content) Crusher Tender Relationship Specialty Start Date End Date Stephen Cordero [facility] [address] [facility] [place] [address] PCP - General Family Medicine 12/14/24 Crusher Tender Relationship Specialty Start Date End Date [facility] [place] [address] PCP - General Family Medicine 12/14/24 Crusher Tender Relationship Specialty Start Date [place] [address] PCP - General Family Medicine 12/14/24 Crusher Tender Relationship Specialty Start Date End Date Stephen Cordero MD [address] [place], [place] [address] [address] PCP - General Family Medicine 12/14/24 FOR RECORDS PERTAINING TO PATIENTS WHO ARE OR HAVE BEEN ENROLLED IN A CHEMICAL DEPENDENCY/SUBSTANCEABUSE PROGRAM, SOME INFORMATION MAY BE OMITTED. This clinical summary was aggregated from multiple sources. Caution should be exercised in using it in the provision of clinical care. This summary normalizes information from multiple sources, and as a consequence, information in this document may materially change the coding, format and clinical context of patient data. In addition, data may be omitted in some cases. CLINICAL DECISIONS SHOULD BE BASED ON THE PRIMARY CLINICAL RECORDS. [employer] [facility]. provides no warranty or guarantee of the accuracy or completeness of information in this document.
== END | disposition home or self-care (01) ==
LOC: US 08:52
PROVIDERS: PCP Registered Nurse; Referring Provider Registered Nurse; Visit Provider Registered Nurse
DX: R10.11 Right upper quadrant pain (principal); R11.0 Nausea; F10.90 Alcohol use, unspecified, uncomplicated
CPT/HCPCS: 76700